=== PATIENT | female | born 1995 | race Caucasian/White ===

== ENCOUNTER → 2016-10-30 | Outpatient (CLI) | payer OTHER ==
--- NOTE | 2016-10-31 08:07 | USB ---
Reason for exam: clinical finding. Indicated problem(s): lump or thickening in both breasts. US Breast BILAT Right breast ultrasound including all four quadrants, the retroareolar region and axilla demonstrates no cystic or solid lesion seen. Left breast ultrasound including all four quadrants, the retroareolar region and axilla demonstrates no cystic or solid lesion seen. Recommend bilateral mammography. These results were verbally communicated with the patient and result sheet given to the patient on 10/30/16. ASSESSMENT: Incomplete: need additional imaging evaluation, BI-RAD 0 RECOMMENDATION: Follow-up diagnostic mammogram of both breasts.
--- NOTE | 2016-10-31 08:08 | MM ---
Reason for exam: clinical finding. Baseline mammogram. Indicated problem(s): lump or thickening in both breasts. Physical Findings: Nurse did not find any significant physical abnormalities on exam. MG Diagnostic Mammo w CAD JORGE Bilateral ML view(s) were taken. The breast tissue is extremely dense which could obscure a lesion on mammography. No suspicious calcifications are seen. These results were verbally communicated with the patient and result sheet given to the patient on 10/30/16. ASSESSMENT: Negative, BI-RAD 1 RECOMMENDATION: Routine screening mammogram of both breasts at age 41. Manage patient on a clinical basis.
== END | disposition home or self-care (01) ==
LOC: RADMAMWWP 14:10
PROVIDERS: ATTEND Family Medicine
DX: N63 Unspecified lump in breast (principal); R92.8 Other abnormal and inconclusive findings on diagnostic imaging of breast
CPT/HCPCS: 76641; G0204

== ENCOUNTER 2019-04-23 05:36 | Emergency (ER) | payer BC, OTHER ==
[2019-04-23 06:54] LABS: Appearance,Urine Clear (Clear); Bilirubin,Urine Negative (Negative); Blood,Urine Moderate (Negative); Color,Urine Yellow; Glucose,Urine (UA) Negative (Negative); Ketones,Urine Negative (Negative); Leukocyte Esterase,Urine Negative (Negative); Mucus,Urine Many /hpf; Nitrite,Urine Negative (Negative); Protein,Urine Trace (Negative); RBC,Urine 171 /hpf (0-5); Specific Gravity,Urine 1.019 (1.001-1.035); Squamous Epithelial Cell,Urine <1 /hpf (0-4); Urobilinogen,Urine <2.0 mg/dL (<2.0)
[2019-04-23] MEDS ORDERED: SODIUM CHLORIDE 0.9% 1,000 ML IV STA (07:25)
[2019-04-23] MEDS ORDERED: KETOROLAC 30 MG/ML 1 ML VIAL IVP STA (07:25)
[2019-04-23] MEDS ORDERED: ONDANSETRON 4 MG/2 ML VIAL IVP STA (07:25)
[2019-04-23 07:32] VITALS: RESP 18; TEMP 98.7
--- NOTE | 2019-04-23 07:51 | ED ---
General Adult HPI - General Chief complaint: Abdominal Pain Stated complaint: lower back pain Time Seen by Provider: 04/23/19 07:07 Source: patient, RN notes reviewed Mode of arrival: ambulatory Limitations: no limitations - History of Present Illness Initial comments: 24-year-old female with a past medical history Woody's, IBS presents to the emergency department for chief pain of right flank pain. Patient states this has been ongoing for about 3 hours. States she woke up around 2 AM with this pain. States it radiates around to her lower abdomen. Patient states she also has some dysuria and discomfort with urination. Denies noticing any hematuria. Denies fevers or chills. Denies vomiting but does admit to minimal nausea. States bowel movements have been normal.Patient has no other complaints at this time including shortness of breath, chest pain, vomiting, headache, or visual changes. - Related Data Home Medications Medication Instructions Recorded Confirmed Cholecalciferol (Vitamin D3) 2,000 unit PO DAILY 04/23/19 04/23/19 [Vitamin D3] Levothyroxine Sodium 25 mcg PO DAILY 04/23/19 04/23/19 Vitamin B Complex 1 cap PO DAILY 04/23/19 04/23/19 l-Norgest/E.estradiol-E.estrad 1 tab PO HS 04/23/19 04/23/19 [Seasonique 0.15-0.03-0.01 Tab] Previous Rx's Medication Instructions Recorded HYDROcodone/APAP 5-325MG [[place] 1 tab PO Q6HR PRN #10 tab 04/23/19 5-325] Ibuprofen [Motrin] 600 mg PO Q8HR PRN #20 tab 04/23/19 Ondansetron [Zofran ODT] 4 mg PO Q8HR PRN #15 tab 04/23/19 Tamsulosin [Flomax] 0.4 mg PO DAILY #7 cap 04/23/19 Allergies Allergy/AdvReac Type Severity Reaction Status Date / Time No Known Allergies Allergy Verified 04/23/19 08:51 Review of Systems ROS Statement: Those systems with pertinent positive or pertinent negative responses have been documented in the HPI. ROS Other: All systems not noted in ROS Statement are negative. Past Medical History Additional Past Medical History / Comment(s): woody's, IBS History of Any Multi-Drug Resistant Organisms: None Reported Past Surgical History: No Surgical Hx Reported Past Psychological History: No Psychological Hx Reported Smoking Status: Never smoker Past Alcohol Use History: Rare Past Drug Use History: None Reported General Exam Limitations: no limitations General appearance: alert, in no apparent distress Head exam: Present: atraumatic, normocephalic, normal inspection Eye exam: Present: normal appearance, PERRL, EOMI. Absent: scleral icterus, conjunctival injection, periorbital swelling ENT exam: Present: normal exam, mucous membranes moist. Absent: normal oropharynx, mucous membranes dry Neck exam: Present: normal inspection Respiratory exam: Present: normal lung sounds bilaterally. Absent: respiratory distress, wheezes, rales, rhonchi, stridor Cardiovascular Exam: Present: regular rate, normal rhythm, normal heart sounds. Absent: systolic murmur, diastolic murmur, rubs, gallop, clicks GI/Abdominal exam: Present: soft, tenderness (Mild right lower quadrant tenderness without guarding or rebound), normal bowel sounds. Absent: distended, guarding, rebound, rigid Back exam: Present: CVA tenderness (R). Absent: CVA tenderness (L) Neurological exam: Present: alert, oriented X3, CN II-XII intact Psychiatric exam: Present: normal affect, normal mood Course Vital Signs 04/23/19 04/23/19 04/23/19 05:43 07:29 08:30 Temperature 98.0 F 98.7 F Pulse Rate 86 72 73 Respiratory 20 18 18 Rate Blood Pressure 117/84 109/63 107/71 O2 Sat by Pulse 99 100 100 Oximetry Medical Decision Making - Medical Decision Making 24-year-old female presents for right-sided flank pain 3 hours. States it radiates into her right abdomen. Does have some discomfort with urination, no fevers or chills. CBC and CMP are unremarkable. Amylase and lipase are within normal limits. However urine does have 171 red blood cells. No evidence for infection. CT does show a 0.2 cm right UVJ stone. This is clinically correlate d as patient does have hematuria as well as right CVA tenderness. Patient was given pain medication which did help with her pain. Patient will be given pain medication for home as well as urology follow-up. Recommended returning if she has any worsening symptoms including fevers, intractable pain, or inability to tolerate oral intake. Recommended following up with urology as well. - Lab Data Result diagrams: 04/23/19 07:44 04/23/19 07:44 Lab Results 04/23/19 04/23/19 04/23/19 Range/Units 06:35 06:35 07:44 WBC (3.8-10.6) k/uL RBC (3.80-5.40) m/uL Hgb (11.4-16.0) gm/dL Hct (34.0-46.0) % MCV (80.0-100.0) fL MCH (25.0-35.0) pg MCHC (31.0-37.0) g/dL RDW (11.5-15.5) % Plt Count (150-450) k/uL Neutrophils % % Lymphocytes % % Monocytes % % Eosinophils % % Basophils % % Neutrophils # (1.3-7.7) k/uL Lymphocytes # (1.0-4.8) k/uL Monocytes # (0-1.0) k/uL Eosinophils # (0-0.7) k/uL Basophils # (0-0.2) k/uL Sodium 140 (137-145) mmol/L Potassium 4.0 (3.5-5.1) mmol/L Chloride 106 (98-107) mmol/L Carbon Dioxide 24 (22-30) mmol/L Anion Gap 10 mmol/L BUN 7 (7-17) mg/dL Creatinine 0.79 (0.52-1.04) mg/dL Est GFR (CKD-EPI)AfAm >90 (>60 ml/min/1.73 sqM) Est GFR (CKD-EPI)NonAf >90 (>60 ml/min/1.73 sqM) Glucose 91 (74-99) mg/dL Calcium 9.7 (8.4-10.2) mg/dL Total Bilirubin 0.6 (0.2-1.3) mg/dL AST 28 (14-36) U/L ALT 32 (9-52) U/L Alkaline Phosphatase 37 L (38-126) U/L Total Protein 7.9 (6.3-8.2) g/dL Albumin 4.7 (3.5-5.0) g/dL Amylase 78 (30-110) U/L Lipase 127 (23-300) U/L Urine Color Yellow Urine Appearance Clear (Clear) Urine pH 6.0 (5.0-8.0) Ur Specific [place] 1.019 (1.001-1.035) Urine Protein Trace H (Negative) Urine Glucose (UA) Negative (Negative) Urine Ketones Negative (Negative) Urine Blood Moderate H (Negative) Urine Nitrite Negative (Negative) Urine Bilirubin Negative (Negative) Urine Urobilinogen <2.0 (<2.0) mg/dL Ur Leukocyte Esterase Negative (Negative) Urine RBC 171 H (0-5) /hpf Urine WBC 2 (0-5) /hpf Ur Squamous Epith Cells <1 (0-4) /hpf Urine Mucus Many H (None) /hpf Urine HCG, Qual Not Detected (Not Detectd) 04/23/19 Range/Units 07:44 WBC 8.4 (3.8-10.6) k/uL RBC 5.04 (3.80-5.40) m/uL Hgb 14.1 (11.4-16.0) gm/dL Hct 43.9 (34.0-46.0) % MCV 87.3 (80.0-100.0) fL MCH 28.0 (25.0-35.0) pg MCHC 32.0 (31.0-37.0) g/dL RDW 14.7 (11.5-15.5) % Plt Count 281 (150-450) k/uL Neutrophils % 83 % Lymphocytes % 13 % Monocytes % 3 % Eosinophils % 0 % Basophils % 0 % Neutrophils # 7.0 (1.3-7.7) k/uL Lymphocytes # 1.1 (1.0-4.8) k/uL Monocytes # 0.2 (0-1.0) k/uL Eosinophils # 0.0 (0-0.7) k/uL Basophils # 0.0 (0-0.2) k/uL Sodium (137-145) mmol/L Potassium (3.5-5.1) mmol/L Chloride (98-107) mmol/L Carbon Dioxide (22-30) mmol/L Anion Gap mmol/L BUN (7-17) mg/dL Creatinine (0.52-1.04) mg/dL Est GFR (CKD-EPI)AfAm (>60 ml/min/1.73 sqM) Est GFR (CKD-EPI)NonAf (>60 ml/min/1.73 sqM) Glucose (74-99) mg/dL Calcium (8.4-10.2) mg/dL Total Bilirubin (0.2-1.3) mg/dL AST (14-36) U/L ALT (9-52) U/L Alkaline Phosphatase (38-126) U/L Total Protein (6.3-8.2) g/dL Albumin (3.5-5.0) g/dL Amylase (30-110) U/L Lipase (23-300) U/L Urine Color Urine Appearance (Clear) Urine pH (5.0-8.0) Ur Specific [place] (1.001-1.035) Urine Protein (Negative) Urine Glucose (UA) (Negative) Urine Ketones (Negative) Urine Blood (Negative) Urine Nitrite (Negative) Urine Bilirubin (Negative) Urine Urobilinogen (<2.0) mg/dL Ur Leukocyte Esterase (Negative) Urine RBC (0-5) /hpf Urine WBC (0-5) /hpf Ur Squamous Epith Cells (0-4) /hpf Urine Mucus (None) /hpf Urine HCG, Qual (Not Detectd) Disposition Clinical Impression: Ureterolithiasis Disposition: HOME SELF-CARE Condition: Good Instructions (If sedation given, give patient instructions): Kidney Stones (ED) Additional Instructions: Please take Motrin for pain. If pain is severe take Nicholson. Do not drive or operate machinery while taking Nicholson. Take Zofran as needed for nausea. Take Flomax as directed. Follow up with urology in 1-2 days. Return here to the emergency department if you have any worsening symptoms, worsening pain, or cannot keep down fluids. Prescriptions: Tamsulosin [Flomax] 0.4 mg PO DAILY #7 cap Ibuprofen [Motrin] 600 mg PO Q8HR PRN #20 tab PRN Reason: Pain HYDROcodone/APAP 5-325MG [Nicholson 5-325] 1 tab PO Q6HR PRN #10 tab PRN Reason: Pain Ondansetron [Zofran ODT] 4 mg PO Q8HR PRN #15 tab PRN Reason: Nausea Is patient prescribed a controlled substance at d/c from ED?: Yes When asked, does pt state using other controlled substances?: No If prescribed controlled substance>3 days was MAPS reviewed?: Prescribed <3 Days If opioid is for acute pain is fill amount 7 days or less?: Yes If Rx opioid, was Start Talking consent form obtained?: Yes Referrals: Giana Rahman MD [Primary Care Provider] - 1-2 days Anthony Louie MD [STAFF PHYSICIAN] - 1-2 days Time of Disposition: 09:07
[2019-04-23 08:00] LABS: Basophils % (A) 0 %; Eosinophils % (A) 0 %; HCT 43.9 % (34.0-46.0); HGB 14.1 gm/dL (11.4-16.0); Lymphocytes # (A) 1.1 k/uL (1.0-4.8); Lymphocytes % (A) 13 %; MCV 87.3 fL (80.0-100.0); Mean Platelet Volume 8.2; Monocytes # (A) 0.2 k/uL (0-1.0); Monocytes % (A) 3 %; Neutrophils % (A) 83 %; Platelet Count 281 k/uL (150-450); RBC 5.04 m/uL (3.80-5.40); RDW 14.7 % (11.5-15.5); WBC 8.4 k/uL (3.8-10.6)
[2019-04-23 08:12] LABS: ALT 32 U/L (9-52); AST 28 U/L (14-36); African American GFR (CKD) >90 (>60 ml/min/1.73 sqM); Albumin 4.7 g/dL (3.5-5.0); Alkaline Phosphatase 37 U/L (38-126); Amylase 78 U/L (30-110); Anion Gap 10 mmol/L; Blood Urea Nitrogen 7 mg/dL (7-17); Calcium 9.7 mg/dL (8.4-10.2); Carbon Dioxide 24 mmol/L (22-30); Chloride 106 mmol/L (98-107); Glucose 91 mg/dL (74-99); Lipase 127 U/L (23-300); Sodium 140 mmol/L (137-145); Total Bilirubin 0.6 mg/dL (0.2-1.3); Total Protein 7.9 g/dL (6.3-8.2)
--- NOTE | 2019-04-23 08:47 | CT ---
EXAMINATION TYPE: CT abdomen pelvis wo con DATE OF EXAM: 04/23/2019 COMPARISON: None INDICATION: Low back pain and pelvic pain DLP: 351.9 mGycm, Automated exposure control for dose reduction was used. CONTRAST: 0 mL of Isovue 300. Study performed without Oral Contrast TECHNIQUE: Axial images were obtained from above the diaphragm to the pubic rami in the axial plane a t 5 mm thick sections. Reconstructed images are reviewed on the computer in the coronal plane. FINDINGS: Limited CT sections are obtained the lung bases. The lung bases are clear. CT ABDOMEN: Liver: Normal Spleen: Normal Pancreas: Normal Adrenal glands: The adrenal glands are normal. Gallbladder: Normal Kidneys: No masses are evident. No hydronephrosis is present. No cysts are present. No renal stone s are evident Aorta: Normal Inferior vena cava: Normal. CT PELVIS: Loops of bowel within the abdomen and pelvis are normal. Studies performed without oral contrast limiting bowel evaluation. Appendix: Normal as visualized. Urinary bladder: There are couple calcifications in the lower pelvis. A distal right ureteral stone i s not excluded. No hydronephrosis or hydroureter is evident. Genitourinary structures: Uterus is normal. Adnexal regions are clear. No free fluid is within the pe lvis. Osseous structures: No suspicious lytic or sclerotic lesions. IMPRESSIONS: 1. Clinical correlation recommended for a 0.2 cm right ureteral vesicle junction stone.
[2019-04-23 08:48] VITALS: BP 107/71; PULSE 73
== END 2019-04-23 09:19 | disposition home or self-care (01) ==
LOC: EC 05:36
DX: N20.1 Calculus of ureter (principal); E06.3 Autoimmune thyroiditis; Z79.3 Long term (current) use of hormonal contraceptives; Z79.890 Hormone replacement therapy; Z79.899 Other long term (current) drug therapy
CPT/HCPCS: 36415; 80053; 82150; 83690; 85025; 81001; 81025; 74176; 99284; 96374; 96375; 96361; J2405; J1885

== ENCOUNTER 2019-04-26 02:13 | Emergency (ER) | payer BC ==
[2019-04-26 02:24] VITALS: TEMP 97.6
[2019-04-26] MEDS ORDERED: SODIUM CHLORIDE 0.9% 1,000 ML IV STA (02:36)
[2019-04-26] MEDS ORDERED: KETOROLAC 30 MG/ML 1 ML VIAL IVP STA (02:53)
[2019-04-26] MEDS ORDERED: MORPHINE SULFATE 4 MG/ML SYRINGE IVP STA ×2 (02:53→04:22)
[2019-04-26] MEDS ORDERED: ONDANSETRON 4 MG/2 ML VIAL IVP STA (02:53)
[2019-04-26 02:59] LABS: Basophils % (A) 0 %; Eosinophils # (A) 0.1 k/uL (0-0.7); Eosinophils % (A) 1 %; HCT 39.5 % (34.0-46.0); HGB 12.8 gm/dL (11.4-16.0); Lymphocytes # (A) 0.9 k/uL (1.0-4.8); Lymphocytes % (A) 11 %; MCH 28.8 pg (25.0-35.0); MCHC 32.5 g/dL (31.0-37.0); MCV 88.6 fL (80.0-100.0); Mean Platelet Volume 7.6; Monocytes # (A) 0.6 k/uL (0-1.0); Monocytes % (A) 7 %; Neutrophils % (A) 81 %; Platelet Count 261 k/uL (150-450); RBC 4.46 m/uL (3.80-5.40); WBC 8.7 k/uL (3.8-10.6)
--- NOTE | 2019-04-26 03:07 | ED ---
Abdominal Pain HPI - General Source: patient, RN notes reviewed, old records reviewed Mode of arrival: ambulatory Limitations: no limitations <Melanie Gerard - Last Filed: 04/26/19 04:13> <Marcelina Gonzalez - Last Filed: 04/26/19 05:26> - General Chief Complaint: Abdominal Pain Stated Complaint: Flank Pain Time Seen by Provider: 04/26/19 02:36 - History of Present Illness Initial Comments: Patient is a 24-year-old female presents today with complaints of right-sided flank pain. Patient recently diagnosed with a right-sided kidney stone. She reports she's been not able to tolerate her medications and vomiting episodes. At this time Patient states that she felt that her pain subsided at 5 PM today. But nonetheless started again late this evening. She thinks she may be passing a subsequent stone. Patient states that she has never had a significant history of kidney stones up until this treatment. Patient states that she has had no fevers or chills. (Melanie Gerard) - Related Data Home Medications Medication Instructions Recorded Confirmed Cholecalciferol (Vitamin D3) 2,000 unit PO DAILY 04/23/19 04/23/19 [Vitamin D3] Levothyroxine Sodium 25 mcg PO DAILY 04/23/19 04/23/19 Vitamin B Complex 1 cap PO DAILY 04/23/19 04/23/19 l-Norgest/E.estradiol-E.estrad 1 tab PO HS 04/23/19 04/23/19 [Seasonique 0.15-0.03-0.01 Tab] Previous Rx's Medication Instructions Recorded HYDROcodone/APAP 5-325MG [[place] 1 tab PO Q6HR PRN #10 tab 04/23/19 5-325] Ibuprofen [Motrin] 600 mg PO Q8HR PRN #20 tab 04/23/19 Ondansetron [Zofran ODT] 4 mg PO Q8HR PRN #15 tab 04/23/19 Tamsulosin [Flomax] 0.4 mg PO DAILY #7 cap 04/23/19 Metoclopramide [Reglan] 10 mg PO ACHS #12 tab 04/26/19 Allergies Allergy/AdvReac Type Severity Reaction Status Date / Time No Known Allergies Allergy Verified 04/23/19 08:51 Review of Systems ROS Other: All systems not noted in ROS Statement are negative. <Melanie Gerard - Last Filed: 04/26/19 04:13> ROS Other: All systems not noted in ROS Statement are negative. <Marcelina Gonzalez Marycruz - Last Filed: 04/26/19 05:26> ROS Statement: Those systems with pertinent positive or pertinent negative responses have been documented in the HPI. Past Medical History Additional Past Medical History / Comment(s): woody's, IBS History of Any Multi-Drug Resistant Organisms: None Reported Past Surgical History: No Surgical Hx Reported Past Psychological History: No Psychological Hx Reported Smoking Status: Never smoker Past Alcohol Use History: Rare Past Drug Use History: None Reported <Melanie Gerard - Last Filed: 04/26/19 04:13> General Exam Limitations: no limitations General appearance: alert, in no apparent distress Head exam: Present: atraumatic, normocephalic, normal inspection Eye exam: Present: normal appearance, PERRL, EOMI. Absent: scleral icterus, conjunctival injection, periorbital swelling ENT exam: Present: normal exam, mucous membranes moist Neck exam: Present: normal inspection. Absent: tenderness, meningismus, lymphadenopathy Respiratory exam: Present: normal lung sounds bilaterally. Absent: respiratory distress, wheezes, rales, rhonchi, stridor Cardiovascular Exam: Present: regular rate, normal rhythm, normal heart sounds. Absent: systolic murmur, diastolic murmur, rubs, gallop, clicks GI/Abdominal exam: Present: soft, tenderness (Right lower quadrant and right flank pain), normal bowel sounds. Absent: distended, guarding, rebound, rigid Extremities exam: Present: normal inspection, full ROM, normal capillary refill. Absent: tenderness, pedal edema, joint swelling, calf tenderness Back exam: Present: normal inspection Neurological exam: Present: alert Psychiatric exam: Present: normal affect, normal mood Skin exam: Present: warm, dry, intact, normal color. Absent: rash <Melanie Gerard - Last Filed: 04/26/19 04:13> - General Exam Comments Initial Comments: Alert and oriented 24-year-old female. No distress. (Melanie Gerard) Course Vital Signs 04/26/19 04/26/19 02:21 04:55 Temperature 97.6 F Pulse Rate 90 70 Respiratory 18 20 Rate Blood Pressure 133/89 105/66 O2 Sat by Pulse 100 97 Oximetry Medical Decision Making - Lab Data Result diagrams: 04/26/19 02:42 04/26/19 02:42 <Melanie Gerard - Last Filed: 04/26/19 04:13> - Lab Data Result diagrams: 04/26/19 02:42 04/26/19 02:42 <Marcelina Gonzalez - Last Filed: 04/26/19 05:26> - Medical Decision Making Patient is a 24 year old female with R flank pain. Hx of nephrolithiaiss. Labs reviewed adn caden. UA shows hematuria. No infection. Discussed trying new nausaea medication and this can be a second stone passing. All quetions answered and return parameters discussed. (Melanie Gerard) I was available for consultation in the emergency department. The history and physical exam were done by the midlevel provider. I was consulted for this patient's care. I reviewed the case with the midlevel provider and based on their presentation of the patient, I agree with the assessment, medical decision making and plan of care as documented. Chart was dictated using [employer]ant[employer] dictation software. Attempts were made to correct any dictation errors however some typographical errors may persist. (Marcelina Gonzalez) - Lab Data Lab Results 04/26/19 04/26/19 04/26/19 Range/Units 02:42 02:42 02:42 WBC 8.7 (3.8-10.6) k/uL RBC 4.46 (3.80-5.40) m/uL Hgb 12.8 (11.4-16.0) gm/dL Hct 39.5 (34.0-46.0) % MCV 88.6 (80.0-100.0) fL MCH 28.8 (25.0-35.0) pg MCHC 32.5 (31.0-37.0) g/dL RDW 14.0 (11.5-15.5) % Plt Count 261 (150-450) k/uL Neutrophils % 81 % Lymphocytes % 11 % Monocytes % 7 % Eosinophils % 1 % Basophils % 0 % Neutrophils # 7.0 (1.3-7.7) k/uL Lymphocytes # 0.9 L (1.0-4.8) k/uL Monocytes # 0.6 (0-1.0) k/uL Eosinophils # 0.1 (0-0.7) k/uL Basophils # 0.0 (0-0.2) k/uL PT 11.0 (9.0-12.0) sec INR 1.0 (<1.2) APTT 24.7 (22.0-30.0) sec Sodium 140 (137-145) mmol/L Potassium 3.1 L (3.5-5.1) mmol/L Chloride 104 (98-107) mmol/L Carbon Dioxide 26 (22-30) mmol/L Anion Gap 10 mmol/L BUN 9 (7-17) mg/dL Creatinine 1.03 (0.52-1.04) mg/dL Est GFR (CKD-EPI)AfAm 89 (>60 ml/min/1.73 sqM) Est GFR (CKD-EPI)NonAf 77 (>60 ml/min/1.73 sqM) Glucose 87 (74-99) mg/dL Calcium 9.3 (8.4-10.2) mg/dL Total Bilirubin 0.3 (0.2-1.3) mg/dL AST 23 (14-36) U/L ALT 25 (9-52) U/L Alkaline Phosphatase 32 L (38-126) U/L Total Protein 7.5 (6.3-8.2) g/dL Albumin 4.5 (3.5-5.0) g/dL Amylase 72 (30-110) U/L Lipase 118 (23-300) U/L Urine Color Urine Appearance (Clear) Urine pH (5.0-8.0) Ur Specific [place] (1.001-1.035) Urine Protein (Negative) Urine Glucose (UA) (Negative) Urine Ketones (Negative) Urine Blood (Negative) Urine Nitrite (Negative) Urine Bilirubin (Negative) Urine Urobilinogen (<2.0) mg/dL Ur Leukocyte Esterase (Negative) Urine RBC (0-5) /hpf Urine WBC (0-5) /hpf Ur Squamous Epith Cells (0-4) /hpf Hyaline Casts (0-2) /lpf Urine Mucus (None) /hpf 04/26/19 Range/Units 03:35 WBC (3.8-10.6) k/uL RBC (3.80-5.40) m/uL Hgb (11.4-16.0) gm/dL Hct (34.0-46.0) % MCV (80.0-100.0) fL MCH (25.0-35.0) pg MCHC (31.0-37.0) g/dL RDW (11.5-15.5) % Plt Count (150-450) k/uL Neutrophils % % Lymphocytes % % Monocytes % % Eosinophils % % Basophils % % Neutrophils # (1.3-7.7) k/uL Lymphocytes # (1.0-4.8) k/uL Monocytes # (0-1.0) k/uL Eosinophils # (0-0.7) k/uL Basophils # (0-0.2) k/uL PT (9.0-12.0) sec INR (<1.2) APTT (22.0-30.0) sec Sodium (137-145) mmol/L Potassium (3.5-5.1) mmol/L Chloride (98-107) mmol/L Carbon Dioxide (22-30) mmol/L Anion Gap mmol/L BUN (7-17) mg/dL Creatinine (0.52-1.04) mg/dL Est GFR (CKD-EPI)AfAm (>60 ml/min/1.73 sqM) Est GFR (CKD-EPI)NonAf (>60 ml/min/1.73 sqM) Glucose (74-99) mg/dL Calcium (8.4-10.2) mg/dL Total Bilirubin (0.2-1.3) mg/dL AST (14-36) U/L ALT (9-52) U/L Alkaline Phosphatase (38-126) U/L Total Protein (6.3-8.2) g/dL Albumin (3.5-5.0) g/dL Amylase (30-110) U/L Lipase (23-300) U/L Urine Color Yellow Urine Appearance Clear (Clear) Urine pH 6.5 (5.0-8.0) Ur Specific [place] 1.024 (1.001-1.035) Urine Protein 2+ H (Negative) Urine Glucose (UA) 1+ H (Negative) Urine Ketones Negative (Negative) Urine Blood Small H (Negative) Urine Nitrite Negative (Negative) Urine Bilirubin Negative (Negative) Urine Urobilinogen <2.0 (<2.0) mg/dL Ur Leukocyte Esterase Negative (Negative) Urine RBC 36 H (0-5) /hpf Urine WBC 3 (0-5) /hpf Ur Squamous Epith Cells 1 (0-4) /hpf Hyaline Casts 7 H (0-2) /lpf Urine Mucus Occasional H (None) /hpf Disposition Is patient prescribed a controlled substance at d/c from ED?: No Time of Disposition: 04:16 <Melanie Gerard - Last Filed: 04/26/19 04:13> <Marcelina Gonzalez - Last Filed: 04/26/19 05:26> Clinical Impression: Ureterolithiasis Disposition: HOME SELF-CARE Condition: Good Instructions (If sedation given, give patient instructions): Hematuria (ED), Flank Pain (ED) Additional Instructions: Patient is advised to have close follow up with PCP and urology. Patient is advised to take medications as prescribed. Patient is advised to return to emergency department if any alarming signs or symptoms occur. Prescriptions: Metoclopramide [Reglan] 10 mg PO ACHS #12 tab Referrals: Giana Rahman MD [Primary Care Provider] - 1-2 days Gokul Armendariz MD [STAFF PHYSICIAN] - 1-2 days
[2019-04-26 03:10] LABS: Albumin 4.5 g/dL (3.5-5.0); Calcium 9.3 mg/dL (8.4-10.2); Potassium 3.1 mmol/L (3.5-5.1); Total Bilirubin 0.3 mg/dL (0.2-1.3); Total Protein 7.5 g/dL (6.3-8.2)
--- NOTE | 2019-04-26 03:15 | XR ---
EXAM: XR Abdomen, 1 View CLINICAL HISTORY: : Pain TECHNIQUE: Frontal supine view of the abdomen/pelvis. COMPARISON: No relevant prior studies available. FINDINGS: Gastrointestinal tract: Unremarkable. No dilation. No evidence for radiopaque for body. No evidence for renal calculus identified on this study. Bones/joints: Unremarkable. IMPRESSION: Normal abdominal x-ray.
[2019-04-26 03:33] LABS: Partial Thromboplastin Time 24.7 sec (22.0-30.0)
[2019-04-26 03:49] LABS: Appearance,Urine Clear (Clear); Bilirubin,Urine Negative (Negative); Blood,Urine Small (Negative); Color,Urine Yellow; Glucose,Urine (UA) 1+ (Negative); Hyaline Casts,Urine 7 /lpf (0-2); Ketones,Urine Negative (Negative); Leukocyte Esterase,Urine Negative (Negative); Mucus,Urine Occasional /hpf; Nitrite,Urine Negative (Negative); PH, Urine 6.5 (5.0-8.0); Protein,Urine 2+ (Negative); RBC,Urine 36 /hpf (0-5); Specific Gravity,Urine 1.024 (1.001-1.035); Squamous Epithelial Cell,Urine 1 /hpf (0-4); Urobilinogen,Urine <2.0 mg/dL (<2.0); WBC,Urine 3 /hpf (0-5)
[2019-04-26] MEDS ORDERED: METOCLOPRAMIDE 5 MG/ML 2 ML VIAL IVP STA (04:22)
[2019-04-26 04:55] VITALS: BP 105/66; PULSE 70; RESP 20
== END 2019-04-26 05:10 | disposition home or self-care (01) ==
LOC: EC 02:13
DX: N20.1 Calculus of ureter (principal); E06.3 Autoimmune thyroiditis; Z79.3 Long term (current) use of hormonal contraceptives; Z79.890 Hormone replacement therapy; Z87.19 Personal history of other diseases of the digestive system; Z87.442 Personal history of urinary calculi
CPT/HCPCS: 36415; 80053; 82150; 83690; 85025; 85610; 85730; 81001; 74018; 99284; 96374; 96375 ×3; 96376; 96361 ×2; J2270; J2765; J2405; J1885

== ENCOUNTER → 2023-12-10 | Outpatient (CLI) | payer BC ==
--- NOTE | 2023-12-10 21:19 | US ---
EXAMINATION TYPE: US OB anatomy transabd DATE OF EXAM: 12/10/2023 COMPARISON: NONE CLINICAL INDICATION: Female, 28 years old with history of O36.62X0 LARGE FOR DATES; TECHNIQUE: Transabdominal (TA) EXAM MEASUREMENTS: GESTATIONAL AGE / DATING Physician Established: (19 weeks/1 days) EDC: 05/04/2024 Dates by LMP: Unknown Dates by First Scan: No previous, this is first scan Dates by Current Scan for: (18 weeks/5 days) EDC: 05/07/2024 SURVEY IUP: Single PLACENTA: Posterior PREVIA: No previa YULIA: 11.24 cm Normal CERVICAL LENGTH (transabdominal: norm > 3.0cm): 3.7 cm BIOMETRY PRESENTATION: Variable LIE: Oblique BPD: 4.23 cm 18 weeks / 6 days HC: 15.81 cm 18 weeks / 5 days AC: 13.62 cm 19 weeks / 0 days FL: 2.89 cm 18 weeks / 6 days ESTIMATED WEIGHT IN GRAMS: 266.0 grams ESTIMATED WEIGHT IN LBS/OZ: 0 lbs. 9 oz. WEIGHT PERCENTAGE BASED ON ESTABLISHED DATE: 34.3 % HC/AC: 1.16 Normal FL/AC: 21.25 Normal HEART RATE: 148 bpm RHYTHM: Normal ANATOMY SEEN (within normal limits): Lateral Vent (< 1 cm) 8 mm Cisterna Magna (< 1.1 cm) 0.27 cm Nuchal Fold (< 0.6 cm) 0.45 cm Cerebellum (varies with age) 1.98 cm Choroid Plexus (bilateral) Midline Falx Stomach Diaphragm Kidneys (bilateral) Bladder Three Vessel Cord Arm (x1) Legs (bilateral) ANATOMY SEEN (does not appear within normal limits): [employer] Counselor notes: Cord Insert - ? knot at inser tion vs suboptimal angle ANATOMY NOT SEEN OR SUBOPTIMALLY VISUALIZED (due to position): Cavus Septi Pellucidi Nose / Lips Arm (x1) Situs Four Chamber Heart Outflow tracts: LVOT/RVOT CORD insertion: Excessive adjacent crowding Longitudinal Spine Transverse Spine [employer] Counselor notes: Rolled patient LPO and RPO and had patient walk - unable to get fetus into proper position for spine images IMPRESSION: 1. Single live intrauterine with established gestational age of 19 weeks 1 day. Current ult rasound biometry is concordant at 18 weeks 5 days placing the child at the 34th percentile for weight . 2. A number of structures on the survey were suboptimally visualized. Additionally, note findin gs at the cord insertion as mentioned by the seeing eye dog trainer above. The patient can be scheduled for a re scan for missed anatomy in 1 to 2 weeks if desired.
== END | disposition home or self-care (01) ==
LOC: RADUSWWP 10:16
PROVIDERS: ATTEND Obstetrics & Gynecology
DX: O36.62X0 Maternal care for excessive fetal growth, second trimester, not applicable or unspecified (principal); Z3A.18 18 weeks gestation of pregnancy
CPT/HCPCS: 76811

== ENCOUNTER → 2023-12-13 | Outpatient (CLI) | payer BC ==
--- NOTE | 2023-12-13 15:22 | US ---
EXAMINATION TYPE: US OB Call Back DATE OF EXAM: 12/13/2023 COMPARISON: 12/10/2023 - Anatomy CLINICAL INDICATION: Female, 28 years old with history of Z36.2 ENCOUNTER FOR OTHER SCREENI NG FOLL; GESTATIONAL AGE / DATING Dates by Initial Survey Scan: (19 weeks/4 days) EDC: 05/04/2024 HEART RATE: 154 bpm RHYTHM: Normal ANATOMY SEEN (second anatomic survey look): Cavus Septi Pellucidi: WNL Four Chamber Heart: WNL Outflow tracts:? LVOT/RVOT Situs: WNL Nose / Lips: WNL Longitudinal Spine: WNL Transverse Spine: WNL Arms (bilateral): WNL ANATOMY STILL NOT SEEN (requiring an additional callback appt): All anatomy previously missed was see n on this exam IMPRESSION: 1. Completion of the anatomy scan appears within normal limits. 2. Cardiac activity at the time of this exam was 154 bpm.
== END ==
LOC: RADUSWWP 14:16
PROVIDERS: ATTEND Obstetrics & Gynecology
DX: Z36.2 Encounter for other antenatal screening follow-up (principal)

== ENCOUNTER 2024-02-22 19:45 | Outpatient (CLI) | payer BC ==
[2024-02-22] MEDS: ACETAMINOPHEN TAB 325 MG TAB PO STA (20:42)
[2024-02-22 21:30] LABS: Amorphous Sediment,Urine Rare /hpf; Appearance,Urine Cloudy (Clear); Bacteria,Urine Many /hpf; Bilirubin,Urine Negative (Negative); Blood,Urine Negative (Negative); Color,Urine Colorless; Glucose,Urine (UA) Negative (Negative); Ketones,Urine Negative (Negative); Leukocyte Esterase,Urine Large (Negative); Mucus,Urine Rare /hpf; Nitrite,Urine Negative (Negative); Protein,Urine Negative (Negative); RBC,Urine 2 /hpf (0-5); Squamous Epithelial Cell,Urine 15 /hpf (0-4); Urobilinogen,Urine <2.0 mg/dL (<2.0); WBC,Urine >182 /hpf (0-5)
[2024-02-22 22:42] VITALS: BP 125/74; PULSE 114; RESP 16; TEMP 97.5
--- NOTE | 2024-03-16 09:26 | P.MSEPDOC ---
Presenting Problems - Arrival Data Date of Arrival on Unit: 02/22/24 Time of Arrival on Unit: 19:45 Mode of Transport: Ambulatory - Complaint OB-Reason for Admission/Chief Complaint: Pain Comment: Patient arrived from home stating that she is experiencing lower abdominal cramping feeling and some back pain that is intermittent starting at 1830 today . Patient denies complications with , no vaginal leaking of fluid or bleeding. Patient did have sexual intercourse today and these complaints started after sexual activity. Medical History - Information : 1 Para: 0 Term: 0 : 0 Abortions: Spontaneous or Elective: 0 Number of Living Children: 0 - Gestational Age Gestational Age by HAYLEY (wks/days): 29 Weeks and 5 Days - History Comment: Patient arrived from home stating that she is experiencing lower abdominal cramping feeling and some back pain that is intermittent starting at 1830 today . Patient denies complications with , no vaginal leaking of fluid or bleeding. Patient did have sexual intercourse today and these complaints started after sexual activity. Review of Systems - Review of Systems Constitutional: No problems Breast: No problems ENT: No problems Cardiovascular: No problems Respiratory: No problems Gastrointestinal: No problems Genitourinary: No problems Musculoskeletal: No problems Neurological: No problems Skin: No problems Vital Signs - Temperature Temperature: 97.5 F Temperature Source: Temporal Artery Scan - Pulse Pulse Oximetery Pulse Rate: 114 Pulse Assessment Method: Automatic Cuff - Respirations Respiratory Rate: 16 Oxygen Delivery Method: Room Air O2 Sat by Pulse Oximetry: 99 - Blood Pressure Right Arm Blood Pressure: 125/74 Blood Pressure Mean: 91 Blood Pressure Source: Automatic Cuff Medical Screen Scoring - Uterine Contractions Resting: Soft to palpation - Assessment - Baby A Baseline FHR: 130 Heart Rate - NICHD Category: Category I (Normal) NST: Reactive Physician Notification - Physician Notified Physician Notified Date: 02/22/24 Physician Notified Time: 19:55 Physician: Paulette Sanderson New Order Received: Yes - Notification Comment Comment: RNspoke with Dr. Sanderson via telephone regarding patients hx, FHR , contractions, pain. Dr. Sanderson ordered urinalysis and oral tylenol for pain. RN to call Dr. Sanderson with urinalysis results. : RN spoke with Dr. Sanderson regarding urinalysis results and there was a urinalysis to culture ordered so Dr. Sanderson stated we will wait on that result. Patient is discharged with maternal comfort measures orderded such as warm shower, warm compress and pillow behind back and between leg while sleeping. Patient is to hydrate orally patient verbally aware of d/c instruction for less than 37 weeks Maternal Triage Index - Urgent/Priority 2 Urgent Priority 2: Yes Provider Notified: Paulette Sanderson Provider Notified Time: 19:55 Criteria Met for Priority 2: Patient arrived from home stating that she is experiencing lower abdominal cramping feeling and some back pain 7/10 that is intermittent starting at 1830 today . Patient denies complications with , no vaginal leaking of fluid or bleeding. Patient did have sexual intercourse today and these complaints started after sexual activity. Disposition - Disposition OB Disposition: Discharge to home Discharge Date: 02/22/24 Discharge Time: 21:50 I agree with the RN Medical Screening Exam: Yes Case reviewed; plan agreed upon as documented in EMR&OBIX.: Yes Diagnosis: FALSE LABOR BEFORE 37 COMPLETED WEEKS OF GEST, THIRD TRI
== END 2024-02-22 21:50 | disposition home or self-care (01) ==
LOC: FBPOP 19:45
PROVIDERS: ATTEND Obstetrics & Gynecology Obstetrics
DX: O47.03 False labor before 37 completed weeks of gestation, third trimester (principal); Z3A.29 29 weeks gestation of pregnancy
CPT/HCPCS: 59025; 81001; 87086; 99213

== ENCOUNTER 2024-03-13 06:37 | Outpatient (CLI) | payer BC ==
[2024-03-13 07:15] LABS: Amorphous Sediment,Urine Rare /hpf; Appearance,Urine Cloudy (Clear); Bacteria,Urine Many /hpf; Bilirubin,Urine Negative (Negative); Blood,Urine Negative (Negative); Color,Urine Colorless; Glucose,Urine (UA) Negative (Negative); Ketones,Urine Negative (Negative); Leukocyte Esterase,Urine Large (Negative); Mucus,Urine Rare /hpf; Nitrite,Urine Negative (Negative); PH, Urine 7.5 (5.0-8.0); Protein,Urine Trace (Negative); RBC,Urine 4 /hpf (0-5); Specific Gravity,Urine 1.011 (1.001-1.035); Squamous Epithelial Cell,Urine 18 /hpf (0-4); Urobilinogen,Urine <2.0 mg/dL (<2.0); WBC,Urine >182 /hpf (0-5)
[2024-03-13] MEDS: LACTATED RINGERS 1,000 ML IV ONE (08:07)
[2024-03-13 11:30] VITALS: BP 122/75; PULSE 107; RESP 16; TEMP 97.7
--- NOTE | 2024-03-20 09:43 | P.MSEPDOC ---
Presenting Problems - Arrival Data Date of Arrival on Unit: 03/13/24 Time of Arrival on Unit: 06:37 Mode of Transport: Ambulatory - Complaint OB-Reason for Admission/Chief Complaint: Pain Comment: Patient presents with back pain that started last night that comes and goes, reports abdominal pain that is constant. Patient states she has a history of kidney stones. Medical History - Information : 1 Para: 0 Term: 0 : 0 Abortions: Spontaneous or Elective: 0 Number of Living Children: 0 - Gestational Age Gestational Age by HAYLEY (wks/days): 32 Weeks and 4 Days - History Comment: History of kidney stones Review of Systems - Review of Systems Constitutional: No problems Breast: No problems ENT: No problems Cardiovascular: No problems Respiratory: No problems Gastrointestinal: No problems Genitourinary: No problems Musculoskeletal: No problems Neurological: No problems Skin: No problems Vital Signs - Temperature Temperature: 97.7 F Temperature Source: Temporal Artery Scan - Pulse Pulse Oximetery Pulse Rate: 107 Pulse Assessment Method: Pulse Oximetry - Respirations Respiratory Rate: 16 Oxygen Delivery Method: Room Air - Blood Pressure Sitting Blood Pressure: 122/75 Blood Pressure Mean: 90 Blood Pressure Source: Automatic Cuff Medical Screen Scoring - Cervical Exam Membranes: Intact - Uterine Contractions Resting: Soft to palpation - Assessment - Baby A Baseline FHR: 135 Heart Rate - NICHD Category: Category I (Normal) NST: Reactive Physician Notification - Physician Notified Physician Notified Date: 03/13/24 Physician Notified Time: 07:49 Physician: Jessie Briones New Order Received: Yes - Notification Comment Comment: Orders given to start IV, give 1000 mg bolus of LR and give 1g kefzol ivpb once. Obtain a reative NST. Discharge home after with reactive NST and give script to go home with oral antibiotics. Maternal Triage Index - Urgent/Priority 2 Urgent Priority 2: Yes Provider Notified: Jessie Briones Provider Notified Time: 07:49 Criteria Met for Priority 2: G1PO 32 4/7 presents with intermittent back pain and constant abdominal pain. Patient reports a history of kidney stones. Disposition - Disposition OB Disposition: Discharge to home, Written follow up instructions reviewed Discharge Date: 03/13/24 Discharge Time: 09:10 I agree with the RN Medical Screening Exam: Yes Physician's MSE Comment: I have neither seen nor examined the patient. Case reviewed; plan agreed upon as documented in EMR&OBIX.: Yes Diagnosis: RELATED CONDITIONS, UNSPECIFIED, THIRD TRIMESTER
== END 2024-03-13 09:10 | disposition home or self-care (01) ==
LOC: FBPOP 06:37
PROVIDERS: ATTEND Obstetrics & Gynecology
DX: O26.893 Other specified pregnancy related conditions, third trimester (principal); M54.50 Low back pain, unspecified; R10.9 Unspecified abdominal pain; Z3A.32 32 weeks gestation of pregnancy; Z87.442 Personal history of urinary calculi
CPT/HCPCS: 59025; 99214; 96361; 96365; 81001; 87086; J0690

== ENCOUNTER 2024-05-03 17:11 | Inpatient (IN) | payer BC ==
[2024-05-03] MEDS ORDERED: METHYLERGONOVINE 0.2 MG/ML 1 ML AMP IM PRN (17:46)
[2024-05-03] MEDS ORDERED: miSOPROStoL 200 MCG TAB PO PRN (17:46)
[2024-05-03] MEDS ORDERED: CARBOPROST TROMETHAMINE 250 MCG/ML 1 ML AMP IM PRN (17:46)
[2024-05-03] MEDS ORDERED: OXYTOCIN 10 UNIT/ML 1 ML VIAL IM PRN (17:46)
[2024-05-03] MEDS ORDERED: TRANEXAMIC 1,000 MG/100ML-NACL 1,000 MG in EMPTY BAG 1 BAG IV PRN (17:46)
[2024-05-03] MEDS ORDERED: miSOPROStoL 200 MCG TAB RECTAL PRN (17:46)
[2024-05-03] MEDS ORDERED: TERBUTALINE 1 MG/ML VIAL SQ PRN (17:46)
[2024-05-03] MEDS: LACTATED RINGERS 1,000 ML IV SCH (17:55)
[2024-05-03 18:07] LABS: Basophils % (A) 0 %; Eosinophils # (A) 0.1 k/uL (0-0.7); Eosinophils % (A) 0 %; HCT 30.7 % (34.0-46.0); HGB 9.8 gm/dL (11.4-16.0); Hypochromasia Moderate; Lymphocytes % (A) 10 %; MCV 78.3 fL (80.0-100.0); Mean Platelet Volume 8.4; Monocytes # (A) 0.5 k/uL (0-1.0); Monocytes % (A) 4 %; Neutrophils # (A) 8.8 k/uL (1.3-7.7); Neutrophils % (A) 84 %; Platelet Count 263 k/uL (150-450); RBC 3.93 m/uL (3.80-5.40); RDW 15.3 % (11.5-15.5); WBC 10.5 k/uL (3.8-10.6)
[2024-05-03] MEDS ORDERED: SODIUM CHLORIDE 0.9% 250 ML BAG ONE (18:16)
[2024-05-03] MEDS ORDERED: fentaNYL (PF) 50 MCG/ML 5 ML AMP ONE (18:16)
[2024-05-03] MEDS ORDERED: ROPIVACAINE 5 MG/ML 30 ML VIAL ONE (18:16)
[2024-05-03] MEDS: FAMOTIDINE 20 MG/2 ML VIAL IV STA (22:00)
--- NOTE | 2024-05-03 22:04 | P.HPOB ---
History of Present Illness H&P Date: 05/03/24 Chief Complaint: labor 29 year old presents at 39 weeks 2 days in labor. Her cervix was 4-5/100/-2 and she was aylin every few minutes. heart tones 135 with moderate variability and reactive. Category 1 heart tones. Review of Systems All systems: negative Constitutional: Denies chills, Denies fever Eyes: denies blurred vision, denies pain Ears, nose, mouth and throat: Denies headache, Denies sore throat Cardiovascular: Denies chest pain, Denies shortness of breath Respiratory: Denies cough Gastrointestinal: Denies abdominal pain, Denies diarrhea, Denies nausea, Denies vomiting Genitourinary: Denies dysuria, Denies hematuria Musculoskeletal: Denies myalgias Integumentary: Denies pruritus, Denies rash Neurological: Denies numbness, Denies weakness Psychiatric: Denies anxiety, Denies depression Endocrine: Denies fatigue, Denies weight change Past Medical History Past Medical History: GERD/Reflux Additional Past Medical History / Comment(s): woody's, IBS. OB history: care with me. A+, abs neg, Rub Imm, RPR NR, Hep B and C neg, HIV NR. GBS neg. History of Any Multi-Drug Resistant Organisms: None Reported Past Surgical History: Tonsillectomy Additional Past Surgical History / Comment(s): hernia repair when a baby Past Anesthesia/Blood Transfusion Reactions: No Reported Reaction Past Psychological History: No Psychological Hx Reported Smoking Status: Never smoker Past Alcohol Use History: Rare Past Drug Use History: None Reported - Past Family History Mother Additional Family Medical History / Comment(s): cholitis or chron's, has colostomy bag now Medications and Allergies Home Medications Medication Instructions Recorded Confirmed Type Vit No.179/Iron/Folic 1 tab PO DAILY 02/22/24 05/03/24 History [ Tablet] Allergies Allergy/AdvReac Type Severity Reaction Status Date / Time No Known Allergies Allergy Verified 05/03/24 17:24 Exam Osteopathic Statement: *. No significant issues noted on an osteopathic structural exam other than those noted in the History and Physical/Consult. Vital Signs Temp Pulse Resp BP Pulse Ox 05/03/24 18:39 97.5 F L 103 H 18 146/81 99 05/03/24 17:13 97.5 F L 103 H 17 146/81 99 Intake and Output 05/03/24 05/03/24 05/03/24 06:59 14:59 22:59 Other: Weight 88.904 kg Heart: Regular rate and rhythm Lungs: Clear to auscultation bilaterally Abdomen: Soft, nontender Extremities: Negative Homans sign Results Result Diagrams: 05/03/24 17:50 Abnormal Lab Results - Last 24 Hours (Table) 05/03/24 Range/Units 17:50 Hgb 9.8 L (11.4-16.0) gm/dL Hct 30.7 L (34.0-46.0) % MCV 78.3 L (80.0-100.0) fL Neutrophils # 8.8 H (1.3-7.7) k/uL Assessment and Plan (1) Normal labor Current Visit: Yes Status: Acute Code(s): O80 - ENCOUNTER FOR FULL-TERM UNCOMPLICATED DELIVERY; Z37.9 - OUTCOME OF DELIVERY, UNSPECIFIED SNOMED Code(s): 04187259 Plan: 1. admit to [facility] 2. expectant management 3. anticipate normal vaginal delivery
--- NOTE | 2024-05-03 22:06 | P.MSEPDOC ---
Presenting Problems - Arrival Data Date of Arrival on Unit: 05/03/24 Time of Arrival on Unit: 17:11 Mode of Transport: Ambulatory - Complaint OB-Reason for Admission/Chief Complaint: Possible Onset of Labor Comment: pt presents with contractions getting stronger and closer together Medical History - Information : 1 Para: 0 Term: 0 : 0 Abortions: Spontaneous or Elective: 0 Number of Living Children: 0 - Gestational Age Gestational Age by HAYLEY (wks/days): 39 Weeks and 2 Days Review of Systems - Review of Systems Constitutional: No problems Breast: No problems ENT: No problems Cardiovascular: No problems Respiratory: No problems Gastrointestinal: No problems Genitourinary: No problems Musculoskeletal: No problems Neurological: No problems Skin: No problems Vital Signs - Temperature Temperature: 97.5 F Temperature Source: Temporal Artery Scan - Pulse Right Brachial Pulse Rate: 103 Pulse Assessment Method: Automatic Cuff - Respirations Respiratory Rate: 18 Oxygen Delivery Method: Room Air O2 Sat by Pulse Oximetry: 99 - Blood Pressure Right Arm Blood Pressure: 146/81 Blood Pressure Mean: 102 Blood Pressure Source: Automatic Cuff Medical Screen Scoring - Cervical Exam Dilation (cm): 5 Effacement (%): 100 Station: -2 Membranes: Intact - Uterine Contractions Frequency From (mins): 2 Frequency To (mins): 4 Duration From (seconds): 40 Duration To (seconds): 70 Intensity: Moderate Resting: Soft to palpation - Assessment - Baby A Baseline FHR: 140 Heart Rate - NICHD Category: Category I (Normal) NST: Reactive Physician Notification - Physician Notified Physician Notified Date: 05/03/24 Physician Notified Time: 17:38 Physician: Jessie Briones New Order Received: Yes - Notification Comment Comment: admitted for labor Maternal Triage Index - Maternal Triage Index Presenting for scheduled procedure w/no complaint: No - Stat/Priority 1 Stat Priority 1: No - Urgent/Priority 2 Urgent Priority 2: No - Prompt/Priority 3 Prompt Priority 3: Yes Criteria Met for Priority 3: pt presents with contractions getting stronger and closer together Disposition - Disposition OB Disposition: Admit, LDRP Suite I agree with the RN Medical Screening Exam: Yes Case reviewed; plan agreed upon as documented in EMR&OBIX.: Yes Diagnosis: ENCOUNTER FOR FULL-TERM UNCOMPLICATED DELIVERY
[2024-05-03] MEDS: OXYTOCIN 30 UNITS/500 ML NS 30 UNIT in SALINE 1 500ML.BAG IV SCH (22:59)
[2024-05-03] MEDS: LIDOCAINE 0.5% (PF) 5 MG/ML (50 ML SDV) SQ PRN (23:13)
[2024-05-03] MEDS ORDERED: diphenhydrAMINE 50 MG/ML 1 ML VIAL IVP PRN ×2 (23:14)
[2024-05-03] MEDS ORDERED: SIMETHICONE 80 MG CHEWABLE PO PRN (23:14)
[2024-05-03] MEDS ORDERED: LANOLIN CREAM 1 GM TUBE TOPICAL PRN (23:14)
[2024-05-03] MEDS ORDERED: BENZOCAINE/MENTHOL SPRAY 1 GM/SPRAY AEROSOL TOPICAL PRN (23:14)
[2024-05-03] MEDS ORDERED: ZOLPIDEM 5 MG TAB PO PRN (23:14)
[2024-05-03] MEDS ORDERED: diphenhydrAMINE 25 MG CAP PO PRN (23:14)
[2024-05-03] MEDS ORDERED: HYDROCORTISONE 2.5% RECTAL CREAM 30 GM TUBE RECTAL PRN (23:14)
[2024-05-03] MEDS ORDERED: diphenhydrAMINE 50 MG CAP PO PRN (23:14)
--- NOTE | 2024-05-03 23:18 | P.PROBDLV ---
Vaginal Delivery Note - . Vaginal Delivery Note: 29 year old presents at 39 weeks 2 days in labor. Her cervix was 4-5/100/-2 and she was aylin every few minutes. heart tones 135 with moderate variability and reactive. Category 1 heart tones. Patient is admitted to [facility] and at 2140 amniotomy was performed when she was 9 cm dilated and clear fluid noted. She progressed to complete pushed and delivered a viable female over intact perineum under epidural anesthesia at 2255. Head delivered OA, anterior shoulder delivered gentle downward guidance followed by posterior shoulder and rest of body. Nose mouth bulb suctioned, cord clamped and cut, placed mother's abdomen. Apgars 9, 9, weight 7 pounds 0.5 ounces. Placenta delivered spontaneously, intact with three-vessel cord at 2258. Vagina, cervix, and perineum were inspected. First-degree midline laceration was repaired with 3-0 Vicryl. Estimated blood loss 100 mL. Mother and baby in stable condition.
[2024-05-03] MEDS: IBUPROFEN 600 MG TAB PO PRN (23:30)
[2024-05-04] MEDS: ACETAMINOPHEN TAB 325 MG TAB PO PRN (04:47)
[2024-05-04 06:12] LABS: Basophils % (A) 0 %; Eosinophils % (A) 0 %; HCT 27.6 % (34.0-46.0); HGB 9.2 gm/dL (11.4-16.0); Hypochromasia Moderate; Lymphocytes # (A) 1.2 k/uL (1.0-4.8); Lymphocytes % (A) 8 %; MCH 27.3 pg (25.0-35.0); MCHC 33.4 g/dL (31.0-37.0); MCV 81.6 fL (80.0-100.0); Mean Platelet Volume 8.8; Monocytes # (A) 0.7 k/uL (0-1.0); Monocytes % (A) 5 %; Neutrophils # (A) 11.6 k/uL (1.3-7.7); Neutrophils % (A) 85 %; Platelet Count 193 k/uL (150-450); Poikilocytosis Slight; RBC 3.38 m/uL (3.80-5.40); RDW 15.4 % (11.5-15.5); WBC 13.7 k/uL (3.8-10.6)
--- NOTE | 2024-05-04 09:48 | P.PNOBGVD ---
Subjective - Subjective Principal diagnosis: Status post total vaginal delivery day #1 Interval history: Seen and examined. Denies nausea, vomiting, chest pain, shortness of breath or calf pain. Patient reports: Reports appetite normal, Reports voiding normally, Reports pain well controlled, Reports ambulating normally [place]: doing well Objective - Latest Vital Signs Latest vital signs: Vital Signs Temp Pulse Resp BP Pulse Ox 05/04/24 03:56 98.0 F 83 16 127/83 05/04/24 01:10 88 16 119/61 05/04/24 00:55 86 16 122/61 05/04/24 00:40 98.9 F 88 16 118/58 05/04/24 00:25 93 16 125/74 05/04/24 00:10 84 16 130/81 05/03/24 23:55 99 16 141/67 05/03/24 23:40 94 16 126/64 05/03/24 23:25 107 H 16 134/66 05/03/24 23:10 98.4 F 122 H 16 137/80 05/03/24 22:06 97.5 F L 103 H 18 146/81 99 05/03/24 18:39 97.5 F L 103 H 18 146/81 99 05/03/24 17:13 97.5 F L 103 H 17 146/81 99 Intake and Output 05/03/24 05/04/24 05/04/24 22:59 06:59 14:59 Intake Total 116.9 Output Total 400 209 Balance -400 -92.1 Intake: Intake, IV Titration 116.9 Amount Oxytocin 30 Units/500 ml 116.9 Ns 30 unit In Saline 1 500ml.bag @ Per Protocol IV .Q0M [facility], 1928–1983 Rx#:[id number] Output: Urine 400 Estimated Blood Loss 100 Output, Quantitative 109 Blood Loss Other: # Voids 1 1 2 Weight 88.904 kg - Exam Lungs: bilateral: normal Chest: Normal S1, Normal S2 Extremities: Present: normal Abdomen: Present: normal appearance, soft Uterus: Present: normal, firm - Labs Labs: Abnormal Lab Results - Last 24 Hours (Table) 05/03/24 05/04/24 Range/Units 17:50 05:49 WBC 13.7 H (3.8-10.6) k/uL RBC 3.38 L (3.80-5.40) m/uL Hgb 9.8 L 9.2 L (11.4-16.0) gm/dL Hct 30.7 L 27.6 L (34.0-46.0) % MCV 78.3 L (80.0-100.0) fL Neutrophils # 8.8 H 11.6 H (1.3-7.7) k/uL Assessment and Plan (1) Normal labor Current Visit: Yes Status: Resolved Code(s): O80 - ENCOUNTER FOR FULL-TERM UNCOMPLICATED DELIVERY; Z37.9 - OUTCOME OF DELIVERY, UNSPECIFIED SNOMED Code(s): 15843042 (2) Status post normal vaginal delivery Current Visit: Yes Status: Acute Code(s): HLB9958 - SNOMED Code(s): 713504380 Plan: . Continue care
[2024-05-04] MEDS: SENNOSIDES-DOCUSATE SODIUM 1 EACH TAB PO SCH (10:23)
--- NOTE | 2024-05-05 08:04 | P.DS ---
Providers Date of admission: 05/03/24 17:46 Expected date of discharge: 05/05/24 Attending physician: Jessie Briones Primary care physician: Stated None - Discharge Diagnosis(es) (1) Normal labor Current Visit: Yes Status: Resolved (2) Status post normal vaginal delivery Current Visit: Yes Status: Acute Hospital Course: Patient presented in active labor. She underwent a normal vaginal delivery. course has been uneventful. She denies nausea, vomiting, chest pain, shortness of breath or calf pain. Her lochia is decreasing and her cramping is controlled. Patient will be discharged home day #1 in stable condition to follow-up with me in 6 weeks. Plan - Discharge Summary New Discharge Prescriptions: New Ibuprofen [Motrin] 600 mg PO Q6HR PRN #30 tab PRN Reason: Mild Pain (Scale 1 To 3) No Action Vit No.179/Iron/Folic [ Tablet] 1 tab PO DAILY Discharge Medication List Vit No.179/Iron/Folic [ Tablet] 1 tab PO DAILY 02/22/24 [History] Ibuprofen [Motrin] 600 mg PO Q6HR PRN #30 tab 05/05/24 [Rx] Follow up Appointment(s)/Referral(s): Jessie Briones DO [Doctor of Osteopathic Medicine] - 6 Weeks Activity/Diet/Wound Care/Special Instructions: 6 weeks apt 06/16/2024 @11:30 am Discharge Disposition: HOME SELF-CARE
[2024-05-05 09:18] VITALS: BP 122/82; PULSE 73; RESP 15; TEMP 97.7
== END 2024-05-05 14:20 | disposition home or self-care (01) | DRG 807 ==
LOC: FBPOP 17:11 → 4FBP 17:46
PROVIDERS: ADMIT Obstetrics & Gynecology; ATTEND Obstetrics & Gynecology
PROC: 10907ZC Drainage of Amniotic Fluid, Therapeutic from Products of Conception, Via Natural or Artificial Opening (ICD-10-PCS; principal; 2024-05-03)
PROC: 0HQ9XZZ Repair Perineum Skin, External Approach (ICD-10-PCS; principal; 2024-05-03)
PROC: 10E0XZZ Delivery of Products of Conception, External Approach (ICD-10-PCS; principal; 2024-05-03)
DX: O99.284 Endocrine, nutritional and metabolic diseases complicating childbirth (principal); E06.3 Autoimmune thyroiditis; O99.62 Diseases of the digestive system complicating childbirth; K21.9 Gastro-esophageal reflux disease without esophagitis; O70.0 First degree perineal laceration during delivery; K58.9 Irritable bowel syndrome, unspecified; Z28.310 Unvaccinated for COVID-19; Z3A.39 39 weeks gestation of pregnancy; Z37.0 Single live birth
CPT/HCPCS: 59025; 85025; 86850; 86900; 86901; 99213

== ENCOUNTER 2025-02-17 09:05 | Outpatient (CLI) | payer BC, OTHER ==
[2025-02-17 09:54] LABS: Creatinine,Urine Random 78.7 mg/dL; Protein/Creatinine Ratio,Urine 0.178
[2025-02-17 10:00] LABS: Amorphous Sediment,Urine Rare /hpf; Appearance,Urine Cloudy (Clear); Bacteria,Urine Rare /hpf; Bilirubin,Urine Negative (Negative); Blood,Urine Negative (Negative); Color,Urine Light Yellow; Glucose,Urine (UA) Negative (Negative); Ketones,Urine Negative (Negative); Leukocyte Esterase,Urine Negative (Negative); Mucus,Urine Rare /hpf; Nitrite,Urine Negative (Negative); PH, Urine 7.5 (5.0-8.0); Protein,Urine Negative (Negative); RBC,Urine 2 /hpf (0-5); Specific Gravity,Urine 1.014 (1.001-1.035); Squamous Epithelial Cell,Urine 2 /hpf (0-4); Urobilinogen,Urine <2.0 mg/dL (<2.0); WBC,Urine 4 /hpf (0-5)
[2025-02-17 10:11] LABS: Basophils # (A) 0.02 10*3/uL (0.00-0.10); Basophils % (A) 0.2 %; Eosinophils # (A) 0.07 10*3/uL (0.04-0.35); Eosinophils % (A) 0.7 %; HCT 30.2 % (37.2-46.3); HGB 9.7 g/dL (12.0-15.0); Lymphocytes % (A) 11.6 %; MCH 25.8 pg (27.0-32.0); MCHC 32.1 g/dL (32.0-37.0); MCV 80.3 fL (80.0-97.0); Mean Platelet Volume 10.7 fL (9.5-12.2); Monocytes # (A) 0.74 10*3/uL (0.20-1.00); Monocytes % (A) 7.8 %; Neutrophils # (A) 7.54 10*3/uL (1.80-7.70); Neutrophils % (A) 79.4 %; Platelet Count 216 10*3/uL (140-440); RBC 3.76 10*6/uL (4.10-5.20); RDW 15.1 % (11.5-14.5)
[2025-02-17 10:23] LABS: ALT 11 U/L (4-34); AST 20 U/L (14-36); African American GFR (CKD) >90 (>60 ml/min/1.73 sqM); Albumin 3.2 g/dL (3.5-5.0); Alkaline Phosphatase 54 U/L (38-126); Anion Gap 8 mmol/L; Blood Urea Nitrogen 7 mg/dL (7-17); Calcium 9.1 mg/dL (8.4-10.2); Carbon Dioxide 23 mmol/L (22-30); Chloride 104 mmol/L (98-107); Glucose 85 mg/dL (74-99); LDH 170 U/L (120-246); Non-African American GFR(CKD) >90 (>60 ml/min/1.73 sqM); Potassium 3.4 mmol/L (3.5-5.1); Sodium 135 mmol/L (137-145); Total Bilirubin 0.4 mg/dL (0.2-1.3); Uric Acid 3.6 mg/dL (3.7-7.4)
[2025-02-17 10:39] LABS: T4, Free (Free Thyroxine) 0.83 ng/dL (0.78-2.19)
[2025-02-17 10:52] LABS: Creatinine,Urine Random 77.1 mg/dL
[2025-02-17 11:25] VITALS: BP 120/75; PULSE 98; RESP 16; TEMP 97.9
== END 2025-02-17 11:11 | disposition home or self-care (01) ==
LOC: FBPOP 09:05
PROVIDERS: ATTEND Obstetrics & Gynecology
DX: O14.90 Unspecified pre-eclampsia, unspecified trimester (principal); Z3A.00 Weeks of gestation of pregnancy not specified
CPT/HCPCS: 80053; 81001; 82570; 83615; 84156; 84439; 84443; 84550; 85025

== ENCOUNTER 2025-05-01 15:28 | Outpatient (CLI) | payer OTHER ==
[2025-05-01 17:07] LABS: Bilirubin,Urine Negative (Negative); Blood,Urine Large (Negative); Color,Urine Colorless; Glucose,Urine (UA) Negative (Negative); Ketones,Urine Negative (Negative); Leukocyte Esterase,Urine Trace (Negative); Nitrite,Urine Negative (Negative); PH, Urine 7.0 (5.0-8.0); Protein,Urine Negative (Negative); RBC,Urine >182 /hpf (0-5); Specific Gravity,Urine 1.009 (1.001-1.035); Squamous Epithelial Cell,Urine <1 /hpf (0-4); Urobilinogen,Urine <2.0 mg/dL (<2.0); WBC,Urine 6 /hpf (0-5)
[2025-05-01 18:03] VITALS: BP 127/72; PULSE 96; RESP 16; TEMP 98.2
--- NOTE | 2025-06-04 09:52 | P.MSEPDOC ---
Presenting Problems - Arrival Data Date of Arrival on Unit: 05/01/25 Time of Arrival on Unit: 15:28 Mode of Transport: Ambulatory - Complaint OB-Reason for Admission/Chief Complaint: Pain Comment: Pt presents to triage with c/o cramping and back pain that feels similar to when she went into labor with her previous . Pt states it is about 4-5/10 and has been occuring for the last few hours. Medical History - Information : 2 Para: 1 Term: 1 : 0 Abortions: Spontaneous or Elective: 0 Number of Living Children: 1 - Gestational Age Gestational Age by HAYLEY (wks/days): 32 Weeks and 6 Days Review of Systems - Review of Systems Constitutional: No problems Breast: No problems ENT: No problems Cardiovascular: No problems Respiratory: No problems Gastrointestinal: No problems Genitourinary: No problems Musculoskeletal: No problems Neurological: No problems Skin: No problems Vital Signs - Temperature Temperature: 98.2 F Temperature Source: Temporal Artery Scan - Pulse Pulse Oximetery Pulse Rate: 96 Pulse Assessment Method: Pulse Oximetry - Respirations Respiratory Rate: 16 Oxygen Delivery Method: Room Air O2 Sat by Pulse Oximetry: 98 - Blood Pressure Right Arm Blood Pressure: 127/72 Blood Pressure Mean: 90 Blood Pressure Source: Automatic Cuff Medical Screen Scoring - Cervical Exam Dilation (cm): 0 Effacement (%): 50 Station: -3 Membranes: Intact - Assessment - Baby A Baseline FHR: 135 Heart Rate - NICHD Category: Category I (Normal) NST: Reactive Physician Notification - Physician Notified Physician Notified Date: 05/01/25 Physician Notified Time: 16:32 Physician: Paulette Sanderson New Order Received: Yes - Notification Comment Comment: At 1632, RN spoke with Dr. Sanderson regarding triage pt c/o back pain/cramping that has been lasting a few hours, rating pain 4.5/10, and pt states this happened with her last labor before she delivered and never had contractions. Reported reactive NST other than one variable down to the 90s, no contx traced, pt unable to give urine d/t urinating prior to admission. Order received to check pt's cervix and send urine sample once able to obtain. At 1717, RN reported urinalysis results and cervical exam, closed/thick/high. Dr. Sanderson to send in antibiotics for potential kidney stone, RN to educate that pt n eeds to increase oral hydration and pt to follow up with Dr. Sanderson on Saturday. Maternal Triage Index - Maternal Triage Index Presenting for scheduled procedure w/no complaint: No - Stat/Priority 1 Stat Priority 1: No - Urgent/Priority 2 Urgent Priority 2: No - Prompt/Priority 3 Prompt Priority 3: No - Non-Urgent/Priority 4 Non-Urgent Priority 4: Yes Criteria Met for Priority 4: Non-urgent symptoms Disposition - Disposition OB Disposition: Discharge to home, Written follow up instructions reviewed Discharge Date: 05/01/25 Discharge Time: 17:29 I agree with the RN Medical Screening Exam: Yes Case reviewed; plan agreed upon as documented in EMR&OBIX.: Yes Diagnosis: FALSE LABOR BEFORE 37 COMPLETED WEEKS OF GEST, THIRD TRI
== END 2025-05-01 17:29 | disposition home or self-care (01) ==
LOC: FBPOP 15:28
PROVIDERS: ATTEND Obstetrics & Gynecology Obstetrics
DX: O47.03 False labor before 37 completed weeks of gestation, third trimester (principal); Z3A.32 32 weeks gestation of pregnancy
CPT/HCPCS: 59025; 81001; 99213